=== PATIENT | female | born 2005 | race Caucasian/White ===

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

== ENCOUNTER 2024-02-21 17:45 | Outpatient (CLI) | payer SELFPAY ==
[2024-02-21 19:30] LABS: Thyroid Stimulating Hormone 2.48 uIU/mL (0.52-4.13)
[2024-02-25 04:54] LABS: Vitamin D 25 Hydroxy 28 ng/mL (30-100)
[2024-02-25 06:09] LABS: Total Triiodothyronine (T3) 124 ng/dL (86-192)
== END 2024-02-21 17:46 | disposition home or self-care (01) ==
LOC: CHSLAB 17:48
PROVIDERS: PCP Nurse Practitioner Family; Visit Provider Nurse Practitioner Family
DX: R53.83 Other fatigue (principal); Z79.899 Other long term (current) drug therapy
CPT/HCPCS: 36415; 82306; 84439; 84443; 84480